=== PATIENT | female | born 1940 | race Caucasian/White ===

== ENCOUNTER → 2017-02-03 | Outpatient (CLI) | payer OTHER, BC | LOC: BMCIMAGING 14:30 | PROVIDERS: ATTEND Internal Medicine | DX: R06.02 Shortness of breath (principal); R91.8 Other nonspecific abnormal finding of lung field; M25.551 Pain in right hip; M25.552 Pain in left hip ==

== ENCOUNTER → 2017-02-10 | Outpatient (CLI) | payer OTHER, BC | LOC: BMCIMAGING 08:08 | PROVIDERS: ATTEND Internal Medicine | DX: R14.0 Abdominal distension (gaseous) (principal) ==

== ENCOUNTER → 2017-05-23 | Outpatient (CLI) | payer OTHER, BC | LOC: BMCIMAGING 13:43 | PROVIDERS: ATTEND Internal Medicine | DX: Z12.31 Encounter for screening mammogram for malignant neoplasm of breast (principal) | CPT/HCPCS: G0202 ==

== ENCOUNTER → 2017-06-01 | Outpatient (CLI) | payer OTHER, BC | LOC: BMCIMAGING 10:25 | PROVIDERS: ATTEND Internal Medicine | DX: Z12.39 Encounter for other screening for malignant neoplasm of breast (principal); N60.01 Solitary cyst of right breast ==

== ENCOUNTER → 2017-06-29 | Outpatient (CLI) | payer OTHER, BC | LOC: BMCIMAGING 10:32 | PROVIDERS: ATTEND Internal Medicine | DX: M54.5 Low back pain (principal); M53.3 Sacrococcygeal disorders, not elsewhere classified ==

== ENCOUNTER → 2018-01-23 | Outpatient (CLI) | payer OTHER, BC | LOC: FIMAGING 09:59 | PROVIDERS: ATTEND Internal Medicine | DX: S73.191A Other sprain of right hip, initial encounter (principal) ==

== ENCOUNTER → 2018-06-05 | Outpatient (CLI) | payer OTHER, BC | LOC: BMCIMAGING 15:05 | PROVIDERS: ATTEND Internal Medicine | DX: Z12.31 Encounter for screening mammogram for malignant neoplasm of breast (principal) ==